=== PATIENT | female | born 1980 | race American Indian/Alaskan Native ===

== ENCOUNTER 2018-08-15 09:58 | Emergency (ER) | payer SELFPAY ==
[2018-08-15 10:13] VITALS: BP 140/88
[2018-08-15] MEDS ORDERED: DECADRON IM ONE (11:44)
--- NOTE | 2018-08-15 11:45 | Emergency Department Report ---
ED Back Pain/Injury HPI - General Chief Complaint: Back Pain/Injury Stated Complaint: SEVERE BACK PAIN Source: patient Mode of arrival: Ambulatory Limitations: No Limitations - History of Present Illness Initial Comments: This is a 38-year-old female that presents to the ER with acute on chronic sciatic nerve pain. Patient states she was diagnosed by [facility] of sciatica one year ago. She was given steroid injection and [place] which improved symptoms for 3 months. Patient states she was referred to orthopedics for follow-up which she has not due to no insurance. Patient reports pain to bilateral lower back radiating to left lower extremity. She denies recent injury, numbness or tingling, swelling, change in urinary or bowel pattern. MD Complaint: back pain Onset/Timin -: year(s) Similar Symptoms Previously: Yes (diagnosed with sciatica 1 year ago) Place: home Radiation: left leg Severity: moderate Severity scale (0 -10): 8 Quality: aching Consistency: intermittent Improves With: none Worsens With: movement, sitting upright Context: unknown Associated Symptoms: denies: numbness, difficulty urinating, incontinence, fever/chills Treatments Prior to Arrival: NSAIDS - Related Data Previous Rx's Medication Instructions Recorded Last Taken Type HYDROcodone/APAP 5-325 [[place] 1 each PO Q6HR PRN #12 tablet 03/31/14 Unknown Rx 5-325 mg TAB] Acetaminophen/Codeine [Tylenol #3] 1 tab PO Q6H PRN #15 tab 02/27/15 Unknown Rx Cyclobenzaprine [Flexeril 10 MG 5 mg PO TID PRN #12 tablet 02/27/15 Unknown Rx TAB] methOCARBAMOL [Robaxin TAB] 500 mg PO BID PRN #20 tab 08/15/18 Unknown Rx Allergies Allergy/AdvReac Type Severity Reaction Status Date / Time NSAIDS (Non-Steroidal Allergy Hives Verified 02/27/15 12:30 Anti-Inflamma ED Review of Systems ROS: Stated complaint: SEVERE BACK PAIN Other details as noted in HPI Constitutional: denies: chills, fever Respiratory: denies: cough, shortness of breath, wheezing Cardiovascular: denies: chest pain, palpitations Gastrointestinal: denies: abdominal pain, nausea, diarrhea Musculoskeletal: back pain. denies: joint swelling, arthralgia Skin: denies: rash, lesions Neurological: denies: headache, weakness, paresthesias Psychiatric: denies: anxiety, depression ED Past Medical Hx - Past Medical History Back pain and Sciatic nerve pain Family history: no significant family history ED Back Pain Physical Exam - Exam General: Vital signs noted. No distress. Alert and acting appropriately. Back/Abdomen: Yes Sacroiliac Tenderness, Yes Straight Leg Raise Pain (left lower extremity), No Abdominal Tenderness, No Perithoracic Tenderness, No Perilumbar Tenderness, No Flank Tenderness Neuro: Yes Normal Sensation, Yes Normal DTR's, Yes Normal Gait, No Motor Weakness ED Course Vital Signs 08/15/18 10:08 Temperature 98.3 F Pulse Rate 95 H Respiratory 20 Rate Blood Pressure 140/88 O2 Sat by Pulse 100 Oximetry ED Medical Decision Making - Medical Decision Making Patient was examined by me. Vitals are normal and patient is in no acute distress. This is acute on chronic low back pain with sciatica to the left lower extremity. Patient given referral in the past to follow up with orthopedics for pain management but unable due to no insurance. Given dexamethasone 10 mg IM injection while in ER. Start baclofen. Patient reviewed in [facility] and received Percocet #[id number] August 03, 2018. She was instructed to follow-up with orthopedics or pain management as it appears she is managed by pain management. Plan discussed with patient to discharge home and treat outpatient. Patient discharged home in stable condition. Follow up with PCP in 2-3 days. Critical care attestation.: If time is entered above; I have spent that time in minutes in the direct care of this critically ill patient, excluding procedure time. ED Disposition Clinical Impression: Sciatica of left side Low back pain Qualifiers: Chronicity: acute Back pain laterality: bilateral Sciatica presence: with sciatica Sciatica laterality: sciatica of left side Qualified Code(s): M54.42 - Lumbago with sciatica, left side Disposition: TO HOME OR SELFCARE Is pt being admited?: No Does the pt Need Aspirin: No Condition: Stable Instructions: Sciatica (ED) Additional Instructions: Follow up with pain management or orthopedics from referrals below. Prescriptions: methOCARBAMOL [Robaxin TAB] 500 mg PO BID PRN #20 tab PRN Reason: Muscle Spasm Referrals: ABBY WARNER MD [Primary Care Provider] - 3-5 Days [facility] [Provider Group] - 3-5 Days [facility] [Provider Group] - 3-5 Days ROBY CHURCHILL MD [Staff Physician] - 3-5 Days Forms: Work/School Release Form(ED) Time of Disposition: 12:15
== END 2018-08-15 12:28 | disposition home or self-care (01) ==
LOC: ED 09:58
DX: M54.42 Lumbago with sciatica, left side (principal); Z88.7 Allergy status to serum and vaccine
CPT/HCPCS: 96372; 99282; J1100